=== PATIENT | male | born 1965 | race Caucasian/White ===

== ENCOUNTER 2019-10-28 16:12 | Emergency (ER) | payer BC ==
[~2019-10-28] VITALS: Ht 172.7 cm; Wt 83.9 kg
--- NOTE | 2019-10-28 17:19 | NUR ---
PATIENT WAS MSE BY DR ARREDONDO IN ROOM 04B.
--- NOTE | 2019-10-28 18:39 | NUR ---
Patient discharged to home in stable conditon. Written and verbal after care instructions given. Patient verbalizes understanding of instructions.
[2019-10-28 18:42] VITALS: BP 120/75
== END 2019-10-28 18:48 | disposition home or self-care (01) ==
LOC: ER 16:15
DX: J18.9 Pneumonia, unspecified organism (principal)
CPT/HCPCS: 71045; A4663